=== PATIENT | male | born 2000 | race Caucasian/White ===

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

== ENCOUNTER → 2018-01-09 | Outpatient (CLI) | payer BC, OTHER | LOC: COL.RAD 09:09 | DX: S43.491A Other sprain of right shoulder joint, initial encounter (principal); Z87.828 Personal history of other (healed) physical injury and trauma | CPT/HCPCS: A9585; Q9967 ==